=== PATIENT | female | born 1970 | race Caucasian/White ===

== ENCOUNTER 2025-06-22 11:27 | Emergency (ER) | payer BC ==
[~2025-06-22 11:27] MED LIST: Iopamidol 370 76% 100 ML VIAL ONE
[2025-06-22] MEDS ORDERED: Metoclopramide HCl 10 MG (2 mL) VIAL ONE (12:01)
[2025-06-22] MEDS ORDERED: Ketorolac Tromethamine 30 MG (1 mL) VIAL ONE (12:01)
[2025-06-22 12:13] LABS: #Basophils 0.1 thou/uL (0.0-0.2); #Eosinophils 0.2 thou/uL (0.0-0.7); #Lymphocytes 4.3 thou/uL (1.20-3.40); #Monocytes 0.8 thou/uL (0.11-0.59); #Neutrophils 4.6 thou/uL (1.40-6.50); %Basophils 0.9 % (0.0-1.0); %Eosinophils 1.7 % (0.0-10.0); %Lymphocytes 43.2 % (21.0-51.0); %Monocytes 8.1 % (0.0-10.0); %Neutrophils 46.1 % (42.0-75.0); Hematocrit 46.6 % (36.0-47.0); Hemoglobin 15.0 g/dL (12.0-16.0); Mean Corpuscular Hemoglobin 30.1 pg (27.0-31.0); Mean Corpuscular Volume 93.7 fl (78.0-98.0); Platelet Count 322 10x3/uL (130-400); Red Blood Cell (RBC) Count 4.98 mill/uL (4.20-5.40); White Blood Cell (WBC) Count 10.0 10x3/uL (4.8-10.8)
[2025-06-22 12:17] LABS: INR-International Normal Ratio 0.9; Prothrombin Time 11.9 sec (12.0-14.7)
[2025-06-22 12:18] LABS: PTT 28.1 sec (22.9-36.1)
[2025-06-22 12:27] LABS: ALT (SGPT) 14 U/L (Less than 34); AST (SGOT) 19 U/L (11-34); Albumin 4.0 g/dL (3.1-4.5); Alkaline Phosphatase 89 U/L (40-110); Anion Gap 14 mmol/L (10-20); BUN (Urea Nitrogen) 8 mg/dL (9.8-20.1); Bilirubin, Total 0.3 mg/dL (0.3-1.2); Calc. Creatinine Clearance 0 mL/min (70-130); Calcium 9.0 mg/dL (7.8-10.44); Carbon Dioxide 26 mmol/L (22-29); Chloride 108 mmol/L (98-107); Globulin 3.3 g/dL (2.4-3.5); Glucose 87 mg/dL (70-105); Magnesium 2.0 mg/dL (1.6-2.6); Potassium 4.0 mmol/L (3.5-5.1); Sodium 144 mmol/L (136-145)
[2025-06-22 12:28] LABS: Troponin I Less than 0.010 ng/mL (< 0.028)
== END 2025-06-22 13:47 | disposition home or self-care (01) ==
LOC: MADERS 11:27
DX: R51.9 Headache, unspecified (principal); R07.89 Other chest pain; M54.6 Pain in thoracic spine; R29.700 NIHSS score 0; F17.210 Nicotine dependence, cigarettes, uncomplicated
CPT/HCPCS: 70450; 70496; 70498; 71275; 74174; 80053; 83735; 84484; 85025; 85610; 85730; 93005; 96374; 96375; J1885; J2765; J7030; Q9967